=== PATIENT | female | born 1955 | race Caucasian/White ===

== ENCOUNTER 2016-07-27 11:10 | Emergency (ER) | payer BC ==
[2016-07-27 11:27] VITALS: BP 136/78
--- NOTE | 2016-07-27 11:32 | UC ---
Complaint Female HPI - HPI Summary HPI Summary: complaint of burning with urination increased frequency and urgency of urination woke up with the symptoms this morning couldn't be seen by PCP today denies fever , abdominal pain back pain hasn't taken any medications for pain last UTI 11/2015 - History Of Current Complaint Chief Complaint: UCGU Stated Complaint: UTI COMPLAINT Time Seen by Provider: 07/27/16 11:30 Hx Obtained From: Patient Hx Last Menstrual Period: 07/2012 - Allergies/Home Medications Allergies/Adverse Reactions: Allergies Allergy/AdvReac Type Severity Reaction Status Date / Time Sulfa Drugs Allergy Rash Verified 07/27/16 11:27 Oxycodone [From Percocet] AdvReac Severe Altered Verified 07/27/16 11:27 Mental Status Home Medications: Home Medications Chlorpheniramine-Phenylephrine [Coricidin D Cold/Flu/Sinu 2-5-325 mg] 07/27/16 [History] PMH/Surg Hx/FS Hx/Imm Hx Previously Healthy: Yes Endocrine History Of: Reports: Thyroid Disease - ON DAILY MEDS Cardiovascular History Of: Reports: Hypertension - ON DAILY MEDS Neurological History Of: Reports: Migraine - HAS NOT HAD ANY SINCE 2011, RELATES IT TO STRESS Cancer History Of: Denies: Breast Cancer - Surgical History Surgical History: Yes Surgery Procedure, Year, and Place: 1991 NASAL SEPTUM [facility]. 1985 BILATERAL TUBAL [facility]. 2010 & 2011 [facility] - Family History Known Family History: Negative: Cardiac Disease, Hypertension, Diabetes - Social History Occupation: Employed Full-time Lives: With Family Alcohol Use: Weekly Substance Use Type: None Smoking Status (MU): Never Smoked Tobacco - Immunization History Most Recent Influenza Vaccination: not this season Review of Systems Constitutional: Negative Skin: Negative Eyes: Negative ENT: Negative Respiratory: Negative Cardiovascular: Negative Gastrointestinal: Negative Genitourinary: Frequency, Urgency Motor: Negative Neurovascular: Negative Musculoskeletal: Negative Neurological: Negative Psychological: Negative All Other Systems Reviewed And Are Negative: Yes Physical Exam Triage Information Reviewed: Yes Appearance: No Pain Distress, Well-Nourished Vital Signs: Initial Vital Signs Temp 97 F 07/27/16 11:23 Pulse 67 07/27/16 11:23 Resp 16 07/27/16 11:23 BP 136/78 07/27/16 11:23 Pulse Ox 100 07/27/16 11:23 Vital Signs Reviewed: Yes Eyes: Positive: Conjunctiva Clear ENT: Positive: Pharynx normal, TMs normal. Negative: Nasal congestion Neck: Positive: Supple Respiratory: Positive: Lungs clear, Normal breath sounds, No respiratory distress Cardiovascular: Positive: RRR, No Murmur Abdomen Description: Positive: Nontender, Soft. Negative: CVA Tenderness (R), CVA Tenderness (L), Distended, Guarding Bowel Sounds: Positive: Present Musculoskeletal: Positive: No Edema Neurological: Positive: Alert Psychological Exam: Normal Skin Exam: Normal Complaint Female Dx - Differential Dx/Diagnosis Differential Diagnosis/HQI/PQRI: Ureteral Stone, Urinary Tract Infection Provider Diagnoses: UTI Discharge - Discharge Plan Condition: Stable Disposition: HOME Prescriptions: Nitrofurantoin Monohyd Macro [Macrobid] 100 mg PO BID #10 cap Phenazopyridine TAB* [Pyridium TAB*] 100 mg PO TID #9 tab Patient Education Materials: Urinary Tract Infection in Women (ED) Referrals: Shirlene Colvin NP [Primary Care Provider] - Additional Instructions: Treatment Recommendations: Medicine should be taken exactly as prescribed. Drink plenty of fluids, especially water. Cranberry juice is a good choice of beverage, because it increases the acidity of urine, which helps to prevent infection. Empty the bladder as soon as the urge is felt. Encourage children to go to the bathroom several times per day. Women should empty the bladder after sexual intercourse. After using the toilet, always wipe front to back. Wear loose fitting clothing (including underwear). Call Your Doctor or Return Here IF: Fever (greater than 101F by mouth) or chills. Back or flank pain begins or worsens. Nausea or vomiting begins or worsens. Unable to take your medications because of vomiting. Urinating less or not at all. Discharge from the vagina Any other new symptoms that worry you.
== END 2016-07-27 11:59 | disposition home or self-care (01) ==
LOC: UCEAST 11:10
DX: N39.0 Urinary tract infection, site not specified (principal); I10 Essential (primary) hypertension; E07.9 Disorder of thyroid, unspecified; Z88.2 Allergy status to sulfonamides; Z88.5 Allergy status to narcotic agent
CPT/HCPCS: 81002; 87077; 87086; 87186; 99212; G0463

== ENCOUNTER 2016-08-02 13:22 | Emergency (ER) | payer BC ==
[2016-08-02 14:19] VITALS: BP 130/85
--- NOTE | 2016-08-02 14:22 | UC ---
Complaint Female HPI - HPI Summary HPI Summary: here last week with UTI sx given 5 days of Macrobid, sx never really got better , no sx are as bad a they were last week, no fevers, chills, hematuria, back pain, nausea, or vomiting - History Of Current Complaint Chief Complaint: UCGU Stated Complaint: UTI COMPLAINT Time Seen by Provider: 08/02/16 14:25 Hx Obtained From: Patient Hx Last Menstrual Period: 07/2012 ?: No Onset/Duration: Gradual Onset, Lasting Days, Still Present Timing: Constant Severity Initially: Moderate Severity Currently: Moderate Pain Intensity: 5 Pain Scale Used: 0-10 Numeric Character: Burning Aggravating Factor(s): Urination Alleviating Factor(s): Nothing Associated Signs And Symptoms: Negative: Fever, Back Pain, Vaginal Bleeding/ Discharge, Vaginal Discharge, Nausea, Genital Swelling, Retained Foregin Body ( Specify) - Allergies/Home Medications Allergies/Adverse Reactions: Allergies Allergy/AdvReac Type Severity Reaction Status Date / Time Sulfa Drugs Allergy Rash Verified 08/02/16 14:19 Oxycodone [From Percocet] AdvReac Severe Altered Verified 08/02/16 14:19 Mental Status PMH/Surg Hx/FS Hx/Imm Hx Previously Healthy: No Endocrine History Of: Reports: Thyroid Disease - ON DAILY MEDS Cardiovascular History Of: Reports: Hypertension - ON DAILY MEDS Neurological History Of: Reports: Migraine - HAS NOT HAD ANY SINCE 2011, RELATES IT TO STRESS Cancer History Of: Denies: Breast Cancer - Surgical History Surgical History: Yes Surgery Procedure, Year, and Place: 1991 NASAL SEPTUM [facility]. 1985 BILATERAL TUBAL [facility]. 2010 & 2011 [facility] - Family History Known Family History: Positive: Cardiac Disease, Diabetes Negative: Hypertension - Social History Occupation: Employed Full-time Lives: With Family Alcohol Use: Weekly Alcohol Amount: Weekends Substance Use Type: None Smoking Status (MU): Never Smoked Tobacco - Immunization History Most Recent Influenza Vaccination: 03/2016 Review of Systems Constitutional: Negative Skin: Negative Eyes: Negative ENT: Negative Respiratory: Negative Cardiovascular: Negative Gastrointestinal: Negative Genitourinary: Dysuria, Frequency, Urgency Motor: Negative Neurovascular: Negative Musculoskeletal: Negative Neurological: Negative Psychological: Negative All Other Systems Reviewed And Are Negative: Yes Physical Exam Triage Information Reviewed: Yes Appearance: Well-Appearing, No Pain Distress, Well-Nourished Vital Signs: Initial Vital Signs Temp 97.5 F 08/02/16 14:10 Pulse 74 08/02/16 14:10 Resp 16 08/02/16 14:10 BP 130/85 08/02/16 14:10 Pulse Ox 100 08/02/16 14:10 Vital Signs Reviewed: Yes Eye Exam: Normal Eyes: Positive: Conjunctiva Clear ENT Exam: Normal ENT: Positive: Normal ENT inspection, Hearing grossly normal. Negative: Trismus , Muffled/hoarse voice Dental Exam: Normal Neck exam: Normal Neck: Positive: Supple, Nontender Respiratory Exam: Normal Respiratory: Positive: Chest non-tender, Lungs clear, Normal breath sounds, No respiratory distress, No accessory muscle use Cardiovascular Exam: Normal Cardiovascular: Positive: RRR, No Murmur, Pulses Normal Abdominal Exam: Normal Abdomen Description: Positive: Nontender, No Organomegaly, Soft. Negative: CVA Tenderness (R), CVA Tenderness (L) Bowel Sounds: Positive: Present Musculoskeletal Exam: Normal Musculoskeletal: Positive: Strength Intact, ROM Intact, No Edema Neurological Exam: Normal Neurological: Positive: Alert, Muscle Tone Normal Psychological Exam: Normal Skin Exam: Normal Diagnostics - Laboratory Diagnostic Studies Completed/Ordered: ua postive nitrates, leuks Complaint Female Dx - Course Course Of Treatment: keflex, pyridium, increases fluids, follow with pcp - Differential Dx/Diagnosis Differential Diagnosis/HQI/PQRI: Pelvic Inflammatory Disease, Ureteral Stone, Urinary Tract Infection Provider Diagnoses: UTI Discharge - Discharge Plan Condition: Stable Disposition: HOME Prescriptions: Cephalexin CAP* [Keflex CAP*] 500 mg PO BID #20 cap Fluconazole [Diflucan 150 MG (NF)] 150 mg PO SEE INSTRUCTIONS #1 tab Phenazopyridine TAB* [Pyridium TAB*] 100 mg PO TID PRN #9 tab PRN Reason: pain with urination Patient Education Materials: Phenazopyridine (By mouth), Urinary Tract Infection in Women (ED) Referrals: Shirlene Colvin NP [Primary Care Provider] - If Needed
[2016-08-02] MEDS ORDERED: Phenazopyridine TAB* 100 MG PO ONE (14:37)
== END 2016-08-02 14:49 | disposition home or self-care (01) ==
LOC: UCEAST 13:22
DX: N39.0 Urinary tract infection, site not specified (principal); Z87.440 Personal history of urinary (tract) infections; Z88.5 Allergy status to narcotic agent; Z88.2 Allergy status to sulfonamides; I10 Essential (primary) hypertension; E07.9 Disorder of thyroid, unspecified
CPT/HCPCS: 81002; 87086; 99212; A9270-GY; G0463

== ENCOUNTER 2017-10-07 14:48 | Emergency (ER) | payer BC ==
[2017-10-07 15:48] VITALS: BP 130/79
--- NOTE | 2017-10-07 16:30 | UC ---
FLU HPI - HPI Summary HPI Summary: states she was at an ER in [place] several days ago and today she started with fever, headache, she felt sick to the stomach and has been burping the muffin she ate for breakfast. She feels she has gas and has been SOB after that. She took two tylenol and came to - History of Current Complaint Chief Complaint: UCRespiratory Stated Complaint: FLU LIKE SYMS Time Seen by Provider: 10/07/17 16:21 Hx Obtained From: Patient Hx Last Menstrual Period: 07/2012 ?: No Onset/Duration: Sudden Onset, Lasting Hours Severity Currently: Mild Severity Initially: Moderate Pain Intensity: 5 Associated Signs & Symptoms: Positive: Fever, Myalgia, Headache - Risk Factors Influenza Risk Factors: Negative - Allergy/Home Medications Allergies/Adverse Reactions: Allergies Allergy/AdvReac Type Severity Reaction Status Date / Time oxycodone Allergy Altered Verified 10/07/17 15:48 Mental Status Sulfa (Sulfonamide Allergy Rash Verified 10/07/17 15:48 Antibiotics) PMH/Surg Hx/FS Hx/Imm Hx Previously Healthy: Yes Endocrine History: Hypothyroidism, Dyslipidemia Cardiovascular History: Hypertension Psychological History: Anxiety - Surgical History Surgical History: Yes Surgery Procedure, Year, and Place: 1991 NASAL SEPTUM [facility]. 1985 BILATERAL TUBAL [facility]. 2010 & 2011 [facility] - Family History Known Family History: Positive: Cardiac Disease, Diabetes Negative: Hypertension - Social History Alcohol Use: Weekly Alcohol Amount: Weekends Substance Use Type: None Smoking Status (MU): Never Smoked Tobacco - Immunization History Most Recent Influenza Vaccination: 03/2016 Review of Systems Constitutional: Fever, Fatigue Gastrointestinal: Other - burping All Other Systems Reviewed And Are Negative: Yes Physical Exam Triage Information Reviewed: Yes Appearance: Well-Appearing, No Pain Distress, Obese Vital Signs: Initial Vital Signs Temp 98.4 F 10/07/17 15:44 Pulse 89 10/07/17 15:44 Resp 18 10/07/17 15:44 BP 130/79 10/07/17 15:44 Pulse Ox 98 10/07/17 15:44 Vital Signs Reviewed: Yes Eyes: Positive: Conjunctiva Clear ENT: Positive: Hearing grossly normal, Pharynx normal, TMs normal, Uvula midline Neck: Positive: Supple, Nontender, No Lymphadenopathy Respiratory: Positive: Chest non-tender, Lungs clear, Normal breath sounds, No respiratory distress Cardiovascular: Positive: RRR, No Murmur, Pulses Normal, Brisk Capillary Refill Abdomen Description: Positive: Nontender, No Organomegaly, Soft, Other: - mid distension Bowel Sounds: Positive: Present Flu Course/Dx - Course Course Of Treatment: rapid influenza test was negative. Viral syndrome, oral hydration, avoid caffeine, dairy. Rest. - Differential Dx/Diagnosis Provider Diagnoses: Viral Syndrome Discharge - Sign-Out/Discharge Documenting (check all that apply): Discharge - Discharge Plan Condition: Stable Disposition: HOME Patient Education Materials: Viral Syndrome (ED) Referrals: Shirlene Colvin NP [Primary Care Provider] - - Billing Disposition and Condition Condition: STABLE Disposition: HOME
== END 2017-10-07 17:00 | disposition home or self-care (01) ==
LOC: UCEAST 14:48
DX: B34.9 Viral infection, unspecified (principal); E03.9 Hypothyroidism, unspecified; E78.5 Hyperlipidemia, unspecified; I10 Essential (primary) hypertension; F41.9 Anxiety disorder, unspecified; Z88.5 Allergy status to narcotic agent; Z88.2 Allergy status to sulfonamides
CPT/HCPCS: 87502; 99211; G0463

== ENCOUNTER 2018-12-01 15:20 | Emergency (ER) | payer BC ==
--- NOTE | 2018-12-01 15:31 | UC ---
Throat Pain/Nasal Anastacio HPI - HPI Summary HPI Summary: 63 y/o female presents to the urgent care c/o common cold for 3 weeks. Pt reports symptoms worsen this past week w/ sinus pain, pressure, yellowish nasal discharge, and moderate PND, dry cough, and B/l ear pressure. Pt has been taken OTC medication to alleviate symptoms w/o any improvement. Sinus pain w/ ESTEVES is constant 4/10. Pt denies fever, dizziness, SOB, chest pain, abdominal pain, N/V /d. - History of Current Complaint Stated Complaint: SINUS CONGESTION Time Seen by Provider: 12/01/18 15:30 Hx Obtained From: Patient Hx Last Menstrual Period: 07/2012 ?: No Onset/Duration: Gradual Onset, Lasting Weeks - 3 weeks, Resolved, Worse Since - 1 week Pain Intensity: 4 - sinus pain Pain Scale Used: 0-10 Numeric Cough: Nonproductive Associated Signs & Symptoms: Positive: Sinus Discomfort, Nasal Discharge - yellowish, Other - PND. Negative: Dysphagia, Wheezing, Fever Related History: Seasonal Allergies - Epiglottits Risk Factors Epiglottis Risk Factors: Negative - Allergies/Home Medications Allergies/Adverse Reactions: Allergies Allergy/AdvReac Type Severity Reaction Status Date / Time oxycodone Allergy Altered Verified 12/01/18 15:38 Mental Status Sulfa (Sulfonamide Allergy Rash Verified 12/01/18 15:38 Antibiotics) Home Medications: Home Medications ALPRAZolam TAB* [Xanax TAB*] 0.5 mg PO BID PRN 12/01/18 [History Confirmed 12/01] PARoxetine HCL TAB* [Paxil TAB*] 20 mg PO DAILY 12/01/18 [History Confirmed 07/21] PMH/Surg Hx/FS Hx/Imm Hx Previously Healthy: Yes Endocrine History: Diabetes, Dyslipidemia - Surgical History Surgical History: Yes Surgery Procedure, Year, and Place: 1991 NASAL SEPTUM [facility]. 1985 BILATERAL TUBAL [facility]. 2010 & 2011 [facility] - Family History Known Family History: Positive: Cardiac Disease, Diabetes Negative: Hypertension - Social History Occupation: Employed Part-time Lives: With Family Alcohol Use: Weekly Alcohol Amount: Weekends Substance Use Type: None Smoking Status (MU): Never Smoked Tobacco - Immunization History Most Recent Influenza Vaccination: 03/2016 Review of Systems All Other Systems Reviewed And Are Negative: Yes Constitutional: Positive: Negative Skin: Positive: Negative Eyes: Positive: Negative ENT: Positive: Sore Throat - mild, Ear Ache - B/L ear pressure, Nasal Discharge - yellowish, Sinus Congestion, Sinus Pain/Tenderness, Other - moderate yellowish PND Respiratory: Positive: Cough - dry Cardiovascular: Positive: Negative Gastrointestinal: Positive: Negative Genitourinary: Positive: Negative Motor: Positive: Negative Neurovascular: Positive: Negative Musculoskeletal: Positive: Negative Neurological: Positive: Headache - sinus pain Psychological: Positive: Negative Is Patient Immunocompromised?: No Physical Exam - Summary Physical Exam Summary: Vitals: reviewed General: Well developed, well-nourished female patient with NAD. Head and face: Normocephalic and atraumatic, Positive tenderness over the frontal and maxillary sinuses.. Eyes: PERRLA, EOMI x 2. Normal conjunctiva. No eye discharge. ENT: Ears and TM with normal limits. Nose: edematous and erythematous nasal mucosa with with yellowish discharge and erythematous mucosa. Pharynx with erythema, no exudate. Moderate yellowish PND Neck: Supple, no JVD, no carotid bruits and no lymphadenopathy. Lungs: clear, no rales, no rhonchi, no wheezes. CVS: RRR, S1 and S2 present no murmurs or gallops appreciated. Abdomen: soft nontender with positive bowel sounds. Extremities: no edema noted. Neuro: WNL. Skin: warm and dry Triage Information Reviewed: Yes Throat Pain/Nasal Course/Dx - Course Course Of Treatment: 63 y/o female presents to the urgent care c/o common cold for 3 weeks. Pt reports symptoms worsen this past week w/ sinus pain, pressure, yellowish nasal discharge, and moderate PND, dry cough, and B/l ear pressure. Pt has been taken OTC medication to alleviate symptoms w/o any improvement. Sinus pain w/ ESTEVES is constant 4/10. Pt denies fever, dizziness, SOB, chest pain, abdominal pain, N/V /d. Hx obtained. Pt with 3 weeks of symptoms getting worse. Pt Rx Amoxicillin PO and Flonase nasal spray. Discharge instructions explained to Pt. Advised to Return to the clinic or PCP if symptoms do not improve. Pt's BP is elevated today advised to decrease salt in diet, monitor BP and f/u with PCP for further management. Pt understood and agreed with plan of care. - Differential Dx/Diagnosis Differential Diagnosis/HQI/PQRI: Influenza, Laryngitis, Otitis Media, Sinusitis , URI Provider Diagnosis: Acute bacterial sinusitis, Uncontrolled hypertension Discharge - Sign-Out/Discharge Documenting (check all that apply): Patient Departure - d/c home All imaging exams completed and their final reports reviewed: No Studies - Discharge Plan Condition: Stable Disposition: HOME Prescriptions: Amoxicillin PO (*) [Amoxicillin 875 MG (*)] 875 mg PO BID #20 tab Fluticasone NASAL SPRAY 50MCG* [Flonase NASAL SPRAY 50MCG*] 2 spray BOTH NARES DAILY #1 btl Patient Education Materials: Sinusitis (ED) Referrals: Shirlene Colvin PIPE TESTING TECHNICIAN [Primary Care Provider] - 3 Days Additional Instructions: 1- Please increase fluid intake and rest. take full course of antibiotic to avoid resistance. Take yogurts w/ probiotics or Culturelle to protect your GI system. 2-Use Flonase as directed to help drain fluid. Also buy saline drops to clear sinuses 3-Return to the clinic or PCP if symptoms do not improve for further management and treatment 4-Pt's BP is elevated today advised to decrease salt in diet, monitor BP and f/ u with PCP for further management. - Billing Disposition and Condition Condition: STABLE Disposition: Home
[2018-12-01 15:37] VITALS: BP 145/82
== END 2018-12-01 16:19 | disposition home or self-care (01) ==
LOC: UCEAST 15:20
DX: J01.80 Other acute sinusitis (principal); B96.89 Other specified bacterial agents as the cause of diseases classified elsewhere; I10 Essential (primary) hypertension; E11.9 Type 2 diabetes mellitus without complications; E78.5 Hyperlipidemia, unspecified; Z88.5 Allergy status to narcotic agent; Z88.2 Allergy status to sulfonamides
CPT/HCPCS: 99212; G0463